=== PATIENT | female | born 1995 | race Hispanic/Latino ===

== ENCOUNTER 2017-01-06 21:40 | Emergency (ER) | payer BC ==
[2017-01-06 22:17] LABS: Basophils % (Auto) 1.3 % (0.0-1.8); Eosinophils % (Auto) 2.2 % (0.0-4.3); Hematocrit 36.8 % (30.3-42.9); Hemoglobin 12.3 gm/dl (10.1-14.3); Mean Corpuscular HGB Conc 33 % (30-34); Mean Corpuscular Hemoglobin 27 pg (28-32); Mean Corpuscular Volume 81 fl (79-97); Platelet Count 310 K/mm3 (140-440); Red Blood Count 4.54 M/mm3 (3.65-5.03); Red Cell Distribution Width 15.5 % (13.2-15.2); White Blood Count 8.2 K/mm3 (4.5-11.0)
[2017-01-06 22:37] LABS: Alanine Aminotransferase 13 units/L (7-56); Albumin 4.2 g/dL (3.9-5); Albumin/Globulin Ratio 1.6 %; Alkaline Phosphatase 66 units/L (35-129); Anion Gap 17 mmol/L; Bilirubin,Total < 0.20 mg/dL (0.1-1.2); Blood Urea Nitrogen 9 mg/dL (7-17); Calcium 8.8 mg/dL (8.4-10.2); Carbon Dioxide 22 mmol/L (22-30); Chloride 101.4 mmol/L (98-107); Glucose 93 mg/dL (65-100); Potassium 3.7 mmol/L (3.6-5.0); Sodium 137 mmol/L (137-145); Total Protein 6.8 g/dL (6.3-8.2)
[2017-01-07 01:31] LABS: Urine Drugs of Abuse Note Disclamer
[2017-01-07 01:48] LABS: Bacteria,Urine 2+ /HPF (Negative); Bilirubin,Urine NEG (Negative); Blood,Urine NEG (Negative); Ketones,Urine NEG (Negative); Leukocyte Esterase,Urine NEG (Negative); Mucus,Urine FEW /HPF; Nitrite,Urine NEG (Negative); Protein,Urine <15 mg/dL mg/dL (Negative); Urobilinogen,Urine < 2.0 mg/dL (<2.0)
[2017-01-07] MEDS ORDERED: BENADRYL IV ONE (06:41)
[2017-01-07] MEDS ORDERED: REGLAN IV ONE (06:41)
[2017-01-07] MEDS ORDERED: TORADOL IV ONE (06:41)
--- NOTE | 2017-01-07 06:46 | Emergency Department Report ---
ED Headache HPI - General Chief Complaint: Abdominal Pain Stated Complaint: SIDE PAIN Time Seen by Provider: 01/07/17 06:24 Source: patient Exam Limitations: no limitations - History of Present Illness Initial Comments: 21-year-old female with a past medical history asthma, migraines, and postural orthostasis presents to the hospital with 2 complaints headache and abdominal pain. Complaint 1: Headache She has had a "migraine headache" times one month. Patient complains of a constant pressure to the back of her head and intermittent pains that are diffuse. Positive associated nausea. At times patient is shaking, dizzy, photophobia, and has paresthesias to her lips and fingertips. Patient does have a neurologist located in [place]. Patient was prescribed a Barbituate but it is not helping her pain. She had a CT head done 12/25/2016 and it was negative. Complaint #2: Left lower quadrant Abdominal pain Patient complains of left lower quadrant pain 3 days. Pain is intermittent and feels like cramps. Reproducible palpation. No alleviating factors. Denies dysuria or vaginal discharge. Patient has similar pain in July and had a CAT scan of the abdomen that was negative at that time. She states her left lower quadrants is swollen at times. Patient is sexually active with one partner and occasional condom use. Allergies/Adverse Reactions: Allergies No Known Allergies Allergy (Verified 01/14/14 22:59) Home Medications: Ambulatory Orders Butalb/Acetaminophen/Caffeine [Esgic Capsule] 1 each PO TID PRN 01/07/17 Docusate Sodium [Colace] 100 mg PO BID PRN #30 capsule 01/07/17 HYDROcodone/APAP 5-325 [[place] 5/325] 1 each PO Q4-6H PRN #20 tablet 01/07/17 Sertraline [Zoloft] 25 mg PO QDAY 01/07/17 ED Review of Systems ROS: Stated complaint: SIDE PAIN Other details as noted in HPI Comment: All other systems reviewed and negative Other: Constitutional: No fevers chills Eyes: Light sensitivity ENT: No ear pain or throat pain Neck: Denies pain Respiratory: Denies cough wheezing shortness of breath Cardiovascular: Denies chest pain, palpitations, syncope GI: As per HPI : Denies dysuria, urinary frequency, or urgency Musculoskeletal: Denies back pain, joint swelling Skin: Denies rash, lesions, erythema Neurologic: As per HPI Psychiatric: Denies suicidal ideation, hallucinations ED Past Medical Hx - Past Medical History Previous Medical History?: Yes Hx Headaches / Migraines: Yes Hx Asthma: Yes Additional medical history: postural orthostatic tachycardia syndrome per pt - Surgical History Past Surgical History?: Yes Additional Surgical History: tonsillectomy - Social History Smoking Status: Never Smoker Substance Use Type: Alcohol, Marijuana - Medications Home Medications: Home Medications Medication Instructions Recorded Confirmed Last Taken Type Butalb/Acetaminophen/Caffeine 1 each PO TID PRN 01/07/17 01/07/17 01/06/17 History [Esgic Capsule] Docusate Sodium [Colace] 100 mg PO BID PRN #30 capsule 01/07/17 Unknown Rx HYDROcodone/APAP 5-325 [[place] 1 each PO Q4-6H PRN #20 tablet 01/07/17 Unknown Rx 5/325] Sertraline [Zoloft] 25 mg PO QDAY 01/07/17 01/07/17 01/06/17 History ED Physical Exam - General Limitations: No Limitations - Other Other exam information: General: No limitations, patient is alert in no acute distress Head exam: Atraumatic, normocephalic Eyes exam: Normal appearance, pupils equal reactive to light, extraocular movements intact ENT: Moist mucous membrane, normal oropharynx Neck exam: Normal inspection, full range of motion, no meningismus nontender Respiratory exam: Clear to auscultation bilateral, no wheezes, rales, crackles Cardiovascular: Normal rate and rhythm, normal heart sounds Abdomen: Soft, nondistended, left lower quadrant and suprapubic tenderness. Pelvic: no cmt or adenexal tenderness, no d/c Extremity: Full range of motion normal inspection no deformity Back: Normal Inspection, full range of motion, no tenderness Neurologic: Alert, oriented x3, cranial nerves intact, no motor or sensory deficit Psychiatric: normal affect, normal mood Skin: Warm, dry, intact ED Course Vital Signs 01/06/17 01/07/17 01/07/17 21:50 01:07 01:10 Temperature 98.9 F Pulse Rate 64 73 Respiratory 18 12 Rate Blood Pressure 124/84 124/69 Blood Pressure [Right] O2 Sat by Pulse 99 100 100 Oximetry 01/07/17 01/07/17 01/07/17 01:20 01:30 01:40 Temperature Pulse Rate 67 73 73 Respiratory 14 16 14 Rate Blood Pressure 118/66 114/76 114/76 Blood Pressure [Right] O2 Sat by Pulse 100 99 100 Oximetry 01/07/17 01/07/17 01/07/17 01:50 02:00 02:10 Temperature Pulse Rate 90 67 82 Respiratory 7 L 15 12 Rate Blood Pressure 119/78 121/70 121/70 Blood Pressure [Right] O2 Sat by Pulse 100 100 100 Oximetry 01/07/17 01/07/17 01/07/17 02:20 02:30 02:40 Temperature Pulse Rate 69 62 62 Respiratory 16 16 14 Rate Blood Pressure 116/83 118/75 118/75 Blood Pressure [Right] O2 Sat by Pulse 98 99 98 Oximetry 01/07/17 01/07/17 01/07/17 02:50 03:00 03:10 Temperature Pulse Rate 60 60 60 Respiratory 15 14 16 Rate Blood Pressure 112/72 112/72 121/73 Blood Pressure [Right] O2 Sat by Pulse 98 98 98 Oximetry 01/07/17 01/07/17 01/07/17 03:20 03:30 03:40 Temperature Pulse Rate 62 58 L 71 Respiratory 15 15 16 Rate Blood Pressure 108/68 101/66 101/66 Blood Pressure [Right] O2 Sat by Pulse 98 99 98 Oximetry 01/07/17 01/07/17 01/07/17 03:44 03:50 04:00 Temperature Pulse Rate 59 L 55 L Respiratory 18 13 14 Rate Blood Pressure 112/69 112/69 Blood Pressure [Right] O2 Sat by Pulse 98 99 99 Oximetry 01/07/17 01/07/17 01/07/17 04:10 04:20 04:30 Temperature Pulse Rate 58 L 56 L 57 L Respiratory 18 15 15 Rate Blood Pressure 103/32 94/51 94/51 Blood Pressure [Right] O2 Sat by Pulse 98 98 98 Oximetry 01/07/17 01/07/17 01/07/17 04:40 04:50 05:00 Temperature Pulse Rate 68 74 62 Respiratory 11 L 11 L 15 Rate Blood Pressure 88/49 113/73 115/80 Blood Pressure [Right] O2 Sat by Pulse 100 98 100 Oximetry 01/07/17 01/07/17 01/07/17 05:10 05:20 05:30 Temperature Pulse Rate 64 67 66 Respiratory 11 L 10 L 15 Rate Blood Pressure 115/80 115/73 109/69 Blood Pressure [Right] O2 Sat by Pulse 99 100 99 Oximetry 01/07/17 07:48 Temperature Pulse Rate 87 Respiratory 18 Rate Blood Pressure Blood Pressure 132/91 [Right] O2 Sat by Pulse 100 Oximetry - Reevaluation(s) Reevaluation #1: 01/07/17 06:[address] pending 01/07/17 08:24 Patient received Benadryl, Reglan, Toradol and states she feels sleepy but no relief in her headache. When further questioned patient she has tried tripped and and other headache specific medication the past without relief. Patient's headache has been ongoing, she sees a specialist, and multiple meds have been tried prior to ER presentation. Dilaudid has been ordered and patient will be reassessed for pain relief 01/07/17 09:25 Pain improved after Dilaudid 0.55mg. ED Medical Decision Making - Lab Data Result diagrams: 01/06/17 22:06 01/06/17 22:06 Lab Results 01/06/17 01/06/17 01/06/17 Range/Units 22:06 22:06 22:06 WBC 8.2 (4.5-11.0) K/mm3 RBC 4.54 (3.65-5.03) M/mm3 Hgb 12.3 (10.1-14.3) gm/dl Hct 36.8 (30.3-42.9) % MCV 81 (79-97) fl MCH 27 L (28-32) pg MCHC 33 (30-34) % RDW 15.5 H (13.2-15.2) % Plt Count 310 (140-440) K/mm3 Lymph % (Auto) 39.6 H (13.4-35.0) % Rock % (Auto) 5.8 (0.0-7.3) % Eos % (Auto) 2.2 (0.0-4.3) % Baso % (Auto) 1.3 (0.0-1.8) % Lymph # 3.2 (1.2-5.4) K/mm3 Rock # 0.5 (0.0-0.8) K/mm3 Eos # 0.2 (0.0-0.4) K/mm3 Baso # 0.1 (0.0-0.1) K/mm3 Seg Neutrophils % 51.1 (40.0-70.0) % Seg Neutrophils # 4.2 (1.8-7.7) K/mm3 Sodium 137 (137-145) mmol/L Potassium 3.7 (3.6-5.0) mmol/L Chloride 101.4 (98-107) mmol/L Carbon Dioxide 22 (22-30) mmol/L Anion Gap 17 mmol/L BUN 9 (7-17) mg/dL Creatinine 0.6 L (0.7-1.2) mg/dL Estimated GFR > 60 ml/min BUN/Creatinine Ratio 15.00 % Glucose 93 (65-100) mg/dL Calcium 8.8 (8.4-10.2) mg/dL Total Bilirubin < 0.20 (0.1-1.2) mg/dL AST 15 (5-40) units/L ALT 13 (7-56) units/L Alkaline Phosphatase 66 (35-129) units/L Total Protein 6.8 (6.3-8.2) g/dL Albumin 4.2 (3.9-5) g/dL Albumin/Globulin Ratio 1.6 % HCG, Qual Negative (Negative) Urine Color (Yellow) Urine Turbidity (Clear) Urine pH (5.0-7.0) Ur Specific Hope (1.003-1.030) Urine Protein (Negative) mg/dL Urine Glucose (UA) (Negative) mg/dL Urine Ketones (Negative) mg/dL Urine Blood (Negative) Urine Nitrite (Negative) Urine Bilirubin (Negative) Urine Urobilinogen (<2.0) mg/dL Ur Leukocyte Esterase (Negative) Urine WBC (Auto) (0.0-6.0) /HPF Urine RBC (Auto) (0.0-6.0) /HPF U Epithel Cells (Auto) (0-13.0) /HPF Urine Bacteria (Auto) (Negative) /HPF Calcium Oxalate Crystal Urine Mucus /HPF Urine Opiates Screen Urine Methadone Screen Ur Barbiturates Screen Ur Phencyclidine Scrn Ur Amphetamines Screen U Benzodiazepines Scrn Urine Cocaine Screen U Marijuana (THC) Screen Drugs of Abuse Note 01/06/17 01/06/17 Range/Units Unknown Unknown WBC (4.5-11.0) K/mm3 RBC (3.65-5.03) M/mm3 Hgb (10.1-14.3) gm/dl Hct (30.3-42.9) % MCV (79-97) fl MCH (28-32) pg MCHC (30-34) % RDW (13.2-15.2) % Plt Count (140-440) K/mm3 Lymph % (Auto) (13.4-35.0) % Rock % (Auto) (0.0-7.3) % Eos % (Auto) (0.0-4.3) % Baso % (Auto) (0.0-1.8) % Lymph # (1.2-5.4) K/mm3 Rock # (0.0-0.8) K/mm3 Eos # (0.0-0.4) K/mm3 Baso # (0.0-0.1) K/mm3 Seg Neutrophils % (40.0-70.0) % Seg Neutrophils # (1.8-7.7) K/mm3 Sodium (137-145) mmol/L Potassium (3.6-5.0) mmol/L Chloride (98-107) mmol/L Carbon Dioxide (22-30) mmol/L Anion Gap mmol/L BUN (7-17) mg/dL Creatinine (0.7-1.2) mg/dL Estimated GFR ml/min BUN/Creatinine Ratio % Glucose (65-100) mg/dL Calcium (8.4-10.2) mg/dL Total Bilirubin (0.1-1.2) mg/dL AST (5-40) units/L ALT (7-56) units/L Alkaline Phosphatase (35-129) units/L Total Protein (6.3-8.2) g/dL Albumin (3.9-5) g/dL Albumin/Globulin Ratio % HCG, Qual (Negative) Urine Color Yellow (Yellow) Urine Turbidity Clear (Clear) Urine pH 6.0 (5.0-7.0) Ur Specific Hope 1.012 (1.003-1.030) Urine Protein <15 mg/dl (Negative) mg/dL Urine Glucose (UA) Neg (Negative) mg/dL Urine Ketones Neg (Negative) mg/dL Urine Blood Neg (Negative) Urine Nitrite Neg (Negative) Urine Bilirubin Neg (Negative) Urine Urobilinogen < 2.0 (<2.0) mg/dL Ur Leukocyte Esterase Neg (Negative) Urine WBC (Auto) 4.0 (0.0-6.0) /HPF Urine RBC (Auto) 4.0 (0.0-6.0) /HPF U Epithel Cells (Auto) 2.0 (0-13.0) /HPF Urine Bacteria (Auto) 2+ (Negative) /HPF Calcium Oxalate Crystal 1+ Urine Mucus Few /HPF Urine Opiates Screen Presumptive negative Urine Methadone Screen Presumptive negative Ur Barbiturates Screen Presumptive positive Ur Phencyclidine Scrn Presumptive negative Ur Amphetamines Screen Presumptive negative U Benzodiazepines Scrn Presumptive negative Urine Cocaine Screen Presumptive negative U Marijuana (THC) Screen Presumptive positive Drugs of Abuse Note Disclamer Wet prep negative - Radiology Data Radiology results: report reviewed (CT abdomen and pelvis IV contrast: Moderate constipation) - Medical Decision Making Patient has chronic headaches and received medication in the ED with improvement. Labs do not reveal any acute abnormality. CT only significant for constipation. Patient be discharged on additional medication for pain and stool softener. Continued outpatient follow with her neurologist will be encouraged. CT head not performed today given that patient's headache has been chronic 1 month and she has received a CAT scan of the head this month as well. - Differential Diagnosis Colic, UTI, diverticulitis, vaginitis, PID, migraine, headache nos Critical Care Time: No Critical care attestation.: If time is entered above; I have spent that time in minutes in the direct care of this critically ill patient, excluding procedure time. ED Disposition Clinical Impression: Migraine headache, LLQ pain, Constipation Disposition: - TO HOME OR SELFCARE Is pt being admited?: No Does the pt Need Aspirin: No Condition: Stable Instructions: Migraine Headache (ED), Constipation (ED) Additional Instructions: Take the medication as prescribed. Follow-up with your neurologist for further treatment. Return if symptoms worsen Prescriptions: Docusate Sodium [Colace] 100 mg PO BID PRN #30 capsule PRN Reason: Constipation HYDROcodone/APAP 5-325 [[place] 5/325] 1 each PO Q4-6H PRN #20 tablet PRN Reason: Pain Referrals: your, neurologist [Other] - 2-3 Days Time of Disposition: 09:28
[2017-01-07] MEDS ORDERED: NACL 0.9% 1000 ML 1,000 ML IV ONE (06:47)
[2017-01-07] MEDS ORDERED: NACL ONE (07:13)
--- NOTE | 2017-01-07 08:17 | Cat Scan Report ---
CT ABDOMEN AND PELVIS WITH CONTRAST INDICATION: LLQ, suprapubic pain. COMPARISON: None similar. FINDINGS: Abdomen and pelvis CT performed following intravenous administration of 100 cc of Omnipaque 300. LUNG BASES: Normal heart size. No effusions. Slight nonspecific air-filled prominence of the distal esophagus. ABDOMEN: Liver, spleen, gallbladder, pancreas, adrenals, nonaneurysmal abdominal aorta, IVC and kidneys appear within normal limits bilaterally without hydronephrosis, ascites or size significant adenopathy. Left hepatic lobe tip touches the spleen in the left upper quadrant. Nonopacified GI tract evaluation limited, though grossly nonobstructive. Moderate colonic stool/possible constipation. PELVIS: Uterus, adnexa/ovaries and the urinary bladder demonstrate physiologic CT appearance with minimal pelvic free fluid. Rectosigmoid stool. Unremarkable bones. CONCLUSION: Constipation suspected without other acute CT abnormality, as described. Please correlate. Thank you for the opportunity to participate in this patient's care.
[2017-01-07] MEDS ORDERED: DILAUDID IV ONE (08:24)
[2017-01-07 10:05] VITALS: BP 101/61
== END 2017-01-07 10:04 | disposition home or self-care (01) ==
LOC: ED 21:40
DX: G43.909 Migraine, unspecified, not intractable, without status migrainosus (principal); K59.00 Constipation, unspecified; J45.909 Unspecified asthma, uncomplicated
CPT/HCPCS: 36415; 74177; 80053; 80307; 81001; 84703; 85025; 87210; 87591; 93005; 93010; 96361; 96374; 96375; 99285; J1170; J1200; J1885; J2765; J7030; Q9967

== ENCOUNTER 2018-03-10 16:54 | Inpatient (IN) | payer BC, MEDICAID ==
[2018-03-10] MEDS ORDERED: COLACE PO PRN (19:22)
[2018-03-10] MEDS ORDERED: BENADRYL PO PRN (19:22)
[2018-03-10] MEDS ORDERED: TYLENOL PO PRN (19:22)
--- NOTE | 2018-03-10 19:31 | History and Physical Report ---
History of Present Illness Date of admission: 03/10/18 17:02 Chief complaint: continued pain, urinary frequency despite inpatient treatment for pyelonephritis History of present illness: 22yo at 23 6/7 weeks treated inpatient for pyelonephritis at [facility] (03/06-03/08) today transferred from clinic for continued flank pain, urinary frequency, urgency and dysuria. She is a transfer into [facility] at 22 weeks from [facility]. Today is her second visit this . Her has been complicated by a choroid plexus cyst, history of anxiety, depression and bipolar disorder. She has a history of genital herpes. Past History - Obstetrical History Expected Date of Delivery: 07/01/18 Actual Gestation: 23 Week(s) 6 Day(s) : 1 Medications and Allergies Allergies Allergy/AdvReac Type Severity Reaction Status Date / Time No Known Allergies Allergy Verified 01/14/14 22:59 Home Medications Medication Instructions Recorded Confirmed Last Taken Type Butalb/Acetaminophen/Caffeine 1 each PO TID PRN 01/07/17 01/07/17 01/06/17 History [Esgic Capsule] Docusate Sodium [Colace] 100 mg PO BID PRN #30 capsule 01/07/17 Unknown Rx HYDROcodone/APAP 5-325 [[place] 1 each PO Q4-6H PRN #20 tablet 01/07/17 Unknown Rx 5/325] Sertraline [Zoloft] 25 mg PO QDAY 01/07/17 01/07/17 01/06/17 History Active Meds: Active Medications Acetaminophen (Tylenol) 650 mg PO Q4H PRN PRN Reason: Pain MILD(1-3)/Fever >100.5/WALTERS Diphenhydramine HCl (Benadryl) 25 mg PO QHS PRN PRN Reason: Insomnia Docusate Sodium (Colace) 100 mg PO Q12H PRN PRN Reason: Constipation Lactated Ringer's (Lactated Ringers) 1,000 mls @ 125 mls/hr IV DIRECT CROW Ceftriaxone Sodium (Rocephin/Ns 1 Gm/50 Ml) 1 gm in 50 mls @ 100 mls/hr IV Q12HR CROW; Protocol Multivitamins/Iron/Calcium ( Vitamin) 1 each PO QDAY CROW - Obstetrical FHR: other (FHT 146 (in office today)) Results Result Diagrams: 03/10/18 19:46 03/10/18 19:46 All other labs normal. Assessment and Plan - Patient Problems (1) Flank pain Status: Acute Plan to address problem: 1. Urine culture and sensitivity. 2. Urinalysis 3. IVF 4. CBC, CMP 5. Rocephing 1 g Q12hrs 6. Renal US (2) 23 weeks gestation of Status: Acute Plan to address problem: 1. NST Qshift 2. Routine antepartum care.
[2018-03-10] MEDS ORDERED: LACTATED RINGERS 1,000 ML IV SCH (20:00)
[2018-03-10] MEDS ORDERED: ROCEPHIN/NS 1 GM/50 ML 1 GM/50 ML BAG IV SCH (20:00)
[2018-03-10 20:14] LABS: Basophils % (Auto) 0.4 % (0.0-1.8); Eosinophils # (Auto) 0.1 K/mm3 (0.0-0.4); Eosinophils % (Auto) 0.9 % (0.0-4.3); Hemoglobin 11.3 gm/dl (10.1-14.3); Lymphocytes # (Auto) 1.6 K/mm3 (1.2-5.4); Lymphocytes % (Auto) 20.1 % (13.4-35.0); Mean Corpuscular HGB Conc 37 % (30-34); Mean Corpuscular Hemoglobin 31 pg (28-32); Mean Corpuscular Volume 85 fl (79-97); Monocytes # (Auto) 0.5 K/mm3 (0.0-0.8); Monocytes % (Auto) 5.7 % (0.0-7.3); Platelet Count 248 K/mm3 (140-440); Red Blood Count 3.66 M/mm3 (3.65-5.03); Red Cell Distribution Width 15.2 % (13.2-15.2)
--- NOTE | 2018-03-10 21:53 | Event Note ---
AGAINST MEDICAL ADVICE - NOTE I was called into the room of Ms. Kumar due to her complaints of being unhappy with her care at [facility]. She was in the hallway but I asked her to return to her room so that we could discuss her concerns. She states that she was unhappy with her care for the following reasons: 1) She arrived at the hospital at 5pm and did not receive a bed until after 7pm. 2) At [facility] the staff was much more attentive to her needs and nicer. 3) The doctor did not come into her room until now (~920pm). I explained to her that the concrete finisher apprentice physician is often not present in the hospital but I did put orders in for her for a urine cultures, ultrasound, lab work, etc. She states she was given IV antibiotics for 2 days at [facility] and was given hydrocodone for her pain. She states she never gets fevers and has never had a fever. She states she had an Ecoli UTI. I explained that pyelonephritis was associated with labor and she could potentially deliver early. Her responded that he doesn't care and he would drive an hour to get his to another hospital. I made a request for her to not curse at myself and the nursing staff for which he apologized. The patient expressed in her own words that she desires to leave the hospital. She verbalizes understanding that she accepts the risks of signing out against medical advice and she signed the AMA form.
[2018-03-11] MEDS ORDERED: PRENATAL VITAMIN PO SCH (10:00)
== END 2018-03-10 21:15 | disposition left against medical advice (07) | DRG 781 ==
LOC: 3A 16:54 → UNDOADMIN 16:54 → LD 17:02
PROVIDERS: ADMIT Obstetrics & Gynecology; ATTEND Obstetrics & Gynecology
DX: O23.02 Infections of kidney in pregnancy, second trimester (principal); Z3A.23 23 weeks gestation of pregnancy; O99.342 Other mental disorders complicating pregnancy, second trimester; F41.9 Anxiety disorder, unspecified; F31.9 Bipolar disorder, unspecified; O35.0XX0 Maternal care for (suspected) central nervous system malformation in fetus, not applicable or unspecified
CPT/HCPCS: 36415; 82565; 85025; J0696

== ENCOUNTER 2019-08-01 12:15 | Outpatient (CLI) | payer BC, MEDICAID | END 2019-08-01 12:16 | disposition home or self-care (01) | LOC: LAB 12:15 | PROVIDERS: ATTEND Specialist | DX: G72.9 Myopathy, unspecified (principal); G95.9 Disease of spinal cord, unspecified | CPT/HCPCS: 36415; 82085; 82550 ==

== ENCOUNTER 2020-09-02 05:55 | Day surgery (SDC) | payer BC, MEDICAID ==
--- NOTE | 2020-08-30 15:08 | Anesthesia Consultation ---
Anesthesia Consult and Med Hx Date of service: 09/02/20 - Airway Anesthetic Teeth Evaluation: Good ROM Head & Neck: Adequate Mental/Hyoid Distance: Adequate Mallampati Class: Class I Intubation Access Assessment: Probably Good - Pulmonary Exam CTA: Yes - Cardiac Exam Cardiac Exam: RRR - Pre-Operative Health Status ASA Pre-Surgery Classification: ASA3 Proposed Anesthetic Plan: General - Pulmonary Hx Asthma: Yes (last inhaler use 1 wk ago) SOB: Yes (dyspnea associated with ) Hx Pneumonia: Yes (COVID+ 06/2020) - Cardiovascular System Hx Hypertension: No (postural orthostatic tachycardia syndrome, baseline BP 110s/80s) Hx Heart Attack/AMI: No Hx Percutaneous Transluminal Coronary Angioplasty (PTCA): No Hx Cardia Arrhythmia: Yes (resting tachycardia 2/2 POTS. Baseline HR 80s-120s) Hx Pacemaker: No Hx Internal Defibrillator: No - Central Nervous System Hx Neuromuscular Disorder: No CVA: No Hx Back Pain: Yes Hx Psychiatric Problems: Yes (anxiety) - Gastrointestinal Hx Gastroesophageal Reflux Disease: Yes - Endocrine Hx Renal Disease: No (hydronephrosis) Hx Liver Disease: No Hx Insulin Dependent Diabetes: No (hypoglycemia) Hx Thyroid Disease: No - Hematic Hx Anemia: Yes - Other Systems Hx Obesity: No - Additional Comments Anesthesia Medical History Comments: Patient will be 30w1d on DOS. Discussed with patient the risks associated with GA during 2nd trimester of including but limited to aspiration, bradycardia, contractions, labor, and loss of . FHTs will be assessed pre- and post- op.
[2020-09-02] MEDS ORDERED: BICITRA ORAL LIQD 30ML PO SCH (06:00)
[2020-09-02] MEDS ORDERED: METOCLOPRAMIDE 10 MG/2 ML INJ IV NR (06:00)
[2020-09-02] MEDS ORDERED: LACTATED RINGERS 1,000 ML IV SCH (06:00)
--- NOTE | 2020-09-02 06:54 | Anesthesia Day of Surgery ---
Anesthesia Day of Surgery - Day of Surgery Patient Examined: Yes Patient H&P Reviewed: Yes Patient is NPO: Yes
[2020-09-02] MEDS ORDERED: ONDANSETRON 4 MG/2 ML INJ IV PRN (07:36)
[2020-09-02] MEDS ORDERED: fentaNYL 100 MCG/2 ML INJ IV PRN (07:37)
[2020-09-02] MEDS ORDERED: propofoL 200 MG/20 ML VIAL IV ONE (08:02)
[2020-09-02] MEDS ORDERED: fentaNYL 100 MCG/2 ML INJ ONE (08:02)
[2020-09-02] MEDS ORDERED: SUCCINYLCHOLINE CHLORIDE 200 MG/10 ML INJ MDV ONE (08:02)
[2020-09-02] MEDS ORDERED: ceFAZolin/NS 1 GM/50 ML 1 GM/50 ML BAG IV NR (08:30)
[2020-09-02] MEDS ORDERED: LIDOCAINE MPF (2%) 20 MG/1 ML VIAL 5 ML ONE (08:47)
[2020-09-02] MEDS ORDERED: ceFAZolin 1 GM VIAL ONE (08:47)
[2020-09-02] MEDS ORDERED: ONDANSETRON 4 MG/2 ML INJ ONE (08:47)
[2020-09-02] MEDS ORDERED: IOHEXOL 300 MG/ML 100ML IV ONE (08:48)
--- NOTE | 2020-09-02 09:23 | Post Operative Note ---
Date of procedure: 09/02/20 Pre-op diagnosis: Left hydro Post-op diagnosis: same Findings: as above Procedure: cysto stent rpg Anesthesia: GETA Surgeon: HAKAN KELLY Estimated blood loss: none Pathology: none Condition: stable Disposition: PACU
--- NOTE | 2020-09-02 09:24 | Discharge Summary ---
Short Stay Discharge Plan Activity: other (no straining ) Weight Bearing Status: Full Weight Bearing Diet: regular Durable Medical Equipment Needed Upon Discharge: other (j stent ) Additional Instructions: AVOID STRAINING. INCREASE ORAL FLUIDS. CALL FOR F/U APPT. Follow up with: HELENA CR MD [Primary Care Provider] - 7 Days HAKAN KELLY MD [Staff Physician] - 14 Days Forms: Outpatient Surgery DC Inst.
[2020-09-02 09:31] VITALS: BP 134/91
--- NOTE | 2020-09-02 09:50 | Operative Report ---
INDICATIONS: This is a 30-week woman who has severe left flank pain. She has also some pain on the right, but not nearly as bad. She has moderate hydronephrosis on the left. She could not function well. She is in severe pain on and off. I offered her percutaneous nephrostomy or stenting. She said her pain is not manageable. She understands that pain may get worse with the stent, but she wants it done. DESCRIPTION OF PROCEDURE: The patient was brought to the operating room and placed on the operating table. Following induction of anesthesia, placed in lithotomy position, prepped and draped in usual sterile fashion. The fetus was protected as much as possible with a metal shield. At this point, minimal retrograde I think we did 3 quick ____ and the renal pelvis was dilated. The calices were preserved. A 26 cm stent 4.8 stent was coiled in the renal pelvis and bladder without difficulty. The patient tolerated the procedure well. The fetus was stable. Everything went well and the bladder was normal. She was brought to recovery in stable condition. JOB# [id number] CHRISTOPHER/RAZIA
--- NOTE | 2020-09-02 10:30 | Post Anesthesia Evaluation ---
- Post Anesthesia Evaluation Patient Participated: Yes Airway Patent: Yes Stable Respiratory Function: Yes Nausea/Vomiting: No Temp > 96.8F: Yes Pain Manageable: Yes Adequeate Hydration: Yes Anesthesia Complications: No Other Comments: Post op FHTs 130s.
--- NOTE | 2020-09-02 15:16 | Fluoroscopy Report ---
CLINICAL INDICATION: HYDRONEPHROSIS TECHNICAL DATA: C-arm imaging was performed for stent placement left ureter. 8 seconds fluoroscopy time. 2 images obt ained FINDINGS: C-arm imaging was performed. IMPRESSION: Stent placement left ureter Signer Name: Lefty Johansen MD Signed: 09/02/2020 3:11 PM Workstation Name: [id number]
== END 2020-09-02 10:25 | disposition home or self-care (01) ==
LOC: OR 05:55
PROVIDERS: ATTEND Urology
DX: O99.891 Other specified diseases and conditions complicating pregnancy (principal); O10.913 Unspecified pre-existing hypertension complicating pregnancy, third trimester; O99.513 Diseases of the respiratory system complicating pregnancy, third trimester; N13.30 Unspecified hydronephrosis; Z20.822 Contact with and (suspected) exposure to COVID-19; I42.9 Cardiomyopathy, unspecified; J45.909 Unspecified asthma, uncomplicated; K21.9 Gastro-esophageal reflux disease without esophagitis; M19.90 Unspecified osteoarthritis, unspecified site; F32.9 Major depressive disorder, single episode, unspecified; F41.9 Anxiety disorder, unspecified; G43.909 Migraine, unspecified, not intractable, without status migrainosus; Z79.899 Other long term (current) drug therapy; Z88.8 Allergy status to other drugs, medicaments and biological substances; Z87.891 Personal history of nicotine dependence; Z87.01 Personal history of pneumonia (recurrent); Z90.49 Acquired absence of other specified parts of digestive tract; Z87.440 Personal history of urinary (tract) infections; Z98.890 Other specified postprocedural states
CPT/HCPCS: 50694; 74420; C1758; C1769; C2617; J0330; J0690; J2405; J2704; J2765; J3490; J7120; Q9967; U0003; J3010